=== PATIENT | female | born 2005 | race Caucasian/White ===

== ENCOUNTER 2024-11-08 14:07 | Inpatient (IN) | payer SELFPAY ==
--- OUTSIDE RECORDS SUMMARY | 2024-10-18 05:00 | XMS_ITS ---
Author Organization [facility] Address [address] [place] [id number] Care Team Providers Care Tile Professional Name Role Phone Jacob Mederos Primary Care Provider CHELSI Barclay Unavailable [phone] REASON FOR VISIT Kings[place] 19yo, ALL X-RAYS Social History Sex Assigned At : Social History Observation Description Sex Assigned At Female Encounters Encounter Location Date Provider Diagnosis [facility] [address] [place] [id number] 10/18/2024 CHELSI CARTER Plan Of Treatment No Information Progress Notes * Javier LIN ADOB:2005 (19 yo F)Acc No.[id number]:10/18/2024 UNLOCKED PROGRESS NOTE Oral health Patient: Carmen GRANADOS Javier Hoff Provider: Tomas CARTER :2005 A ge:19 Y S ex:Female Date:10/18/2024 [facility] [id number] Pcp:Jacob Mederos Structured Data:Homeless : N o Subjective: * Chief Complaints: * 1 . [place] 19yo, ALL X-RAYS. * Medical History: Objective: * Vitals: Assessment: Plan: * Treatment: * Billing Information: * Visit Code: * Procedure Codes: * Electronic signature of JEANNETTE CARTER DDS on 11/08/2024 at 02:11 PM CDT Sign off status: Pending * Provider: Tomas CARTER Date: 0 10/18/2024 Generated for Lauro brewster/Elvin/Iascitting on: 0 11/08/2024 02:11 PM CDT
--- OUTSIDE RECORDS SUMMARY | 2024-11-08 14:11 | XMS_ITS | Patient Health Record ---
Author Organization [facility] Address [address] [place] [id number] Care Team Providers Care [place] Applier Name Role Phone Gatito Jacob Primary Care Provider CHELSI Barclay Unavailable [phone] Allergies Allergen (clinical drug ingredient) Drug/Non Drug Allergy documented on EMR Reaction Allergy Type Onset Date Status contrast dye (uncoded) Unknown Allergy Active Reason For Referral No Information Medications Medication SIG (Take, Route, Frequency, Duration) Notes Start Date End Date Status Concerta Active Probiotic Active Penicillin V Potassium 250 MG 1 tablet Orally Twice a day Active Melatonin Active Social History Tobacco Use: Social History Observation Description Date Details (start date - stop date) Former Smoker NA - NA Sex Assigned At : Social History Observation Description Sex Assigned At Female Smoking Question Answer Notes Are you a: never smoker Tobacco Control (Standard) Question Answer Notes Tobacco use: Former smoker Problems Problem Type SNOMED Code ICD Code Onset Dates Problem Status W/U Status Risk Notes Problem Impacted third molar tooth (092183308) Impacted third molar tooth (K01.1) Active confirmed Vital Signs Heart Rate 83 /min 04/13/2024 Blood pressure diastolic 78 mm Hg 04/13/2024 Blood pressure systolic 114 mm Hg 04/13/2024 Encounters Encounter Location Date Provider Diagnosis [facility] [address] [place] [id number] 04/13/2024 CHELSI CARTER Plan Of Treatment No Information Insurance Providers Payer Name Payer Address Payer Phone Subscriber Number Group Number Insured Name Patient Relationship to Insured Coverage Start Date Coverage End Date Medicaid Home State Health Plan [address] [place] [phone] [id number] Javier Lin Self - patient is the insured [employer] [place] [place] [address] [phone] [id number] Javier Lin Self - patient is the insured Medical (General) History Medical History History ICD Code attention deficit hyperactivity disorder Chorea Surgical History Surgery Date(Month/Year) wisdom teeth removal 03/09
[2024-11-08 14:14] VITALS: BP 97/66; PULSE 87; RESP 17; TEMP 37.3; O2SAT 96
[2024-11-08 14:16] VITALS: BMI 21.0
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
[2024-11-08 19:57] VITALS: BP 98/65; PULSE 72; RESP 16; TEMP 36.9; O2SAT 98
[2024-11-08] MEDS: trazodone 50 mg Tablet PO (21:08)
[2024-11-08] MEDS: hyDROXYzine 25 mg Capsule 50 MG PO (21:08)
[2024-11-09 06:00] VITALS: BP 98/68; PULSE 66; RESP 16; O2SAT 97
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
[2024-11-09 14:00] VITALS: BP 94/48; PULSE 113; RESP 18; TEMP 36.8; O2SAT 93
[2024-11-09] MEDS: fluoxetine 10 mg Capsule 20 MG PO (16:42)
[2024-11-09] MEDS: nicotine 2 mg Gum BUCCAL (16:46)
[2024-11-09 18:14] VITALS: BP 93/63; PULSE 78; RESP 16; O2SAT 98
[2024-11-09] MEDS: hyDROXYzine 25 mg Capsule 50 MG PO (21:27)
[2024-11-09] MEDS: trazodone 50 mg Tablet PO (21:27)
[2024-11-09 22:00] VITALS: BP 104/61; PULSE 87; RESP 16; TEMP 36.4; O2SAT 98
[2024-11-10 06:00] VITALS: BP 80/56; PULSE 82; RESP 16; TEMP 36.8; O2SAT 100
[2024-11-10] MEDS: fluoxetine 20 mg Capsule PO (08:52)
[2024-11-10 14:00] VITALS: BP 98/58; PULSE 76; RESP 18; TEMP 36.6; O2SAT 98
[2024-11-10] MEDS: nicotine 2 mg Gum BUCCAL (16:13)
--- NOTE | 2024-11-10 17:13 | P.NPUPN_ITS ---
Subjective NPU Subjective: Patient presented today reporting that she is doing a little better with the medication. She reports some mild improvement and is optimistic that things can get better. She reports that she is having no side effects from the medication and is hopeful that this is a sign she will be able to leave sooner rather than later. Mental Status Exam MSE Comments: This is a well-nourished well-developed white female in hospital scrubs with limited grooming but adequate eye contact. No abnormal movements except for psychomotor retardation. Cooperative with exam and mild distress. Speech was decreased rate and volume. Mood described as feeling a little better, affect congruent. Thought process organized. Thought content: Patient endorsed suicidal but denied homicidal ideation, there were no delusions reported or noted, he denied any auditory or visual hallucinations. Reports suicidal thoughts and has had instances of self-injurious behavior, specifically cutting, discovered three nights ago. Denies any current thoughts to hurt or kill others. Denies experiencing visual hallucinations currently but reports past feelings of paranoia, particularly when homeless. Describes being a constant worrier with social anxiety, avoiding crowded places. Reports feelings of helplessness, hopelessness, and worthlessness, with depression symptoms worsening over the past 6-7 months. Reports difficulty sleeping and having nightmares, but not currently due to lack of sleep. Describes current mood as content. Recent stressors include homelessness and lack of follow-up care after hospitalizat ions. Attention and concentration were intact and memory appeared reliable but none were formally tested. She is alert and oriented x 3. Insight and judgment appear fair impulse control appears impaired. Vitals/I&O/Wt Last Vital Signs Temp 97.9 F 11/10/24 14:00 Pulse 76 11/10/24 14:00 Resp 18 11/10/24 14:00 BP 98/58 11/10/24 14:00 Pulse Ox 98 11/10/24 14:00 O2 Del Method Room Air 11/10/24 14:00 A&P Assessment and plan (1) Major depressive disorder: (2) PTSD (post-traumatic stress disorder): (3) Partner relational problem: Plan This is a 19-year-old white female with more recent psychiatric issues over the last 6 months. She endorses a history of anxiety going back to childhood but otherwise denied long-term historical issues. The patient is experiencing severe depression characterized by feelings of helplessness, hopelessness, and worthlessness, which have intensified over the past six months. There is a history of suicidal thoughts and self-injurious behavior, including a recent discovery of cutting. Anxiety has been a longstanding issue, exacerbated by recent events, leading to increased paranoia and social anxiety. The patient has also reported auditory hallucinations during periods of heightened stress. Substance use, including alcohol and various drugs, has been problematic, contributing to the deterioration of mental health. The patient has a history of ADHD diagnosed in childhood, which may be impacting current focus and mood stability.] 1. Startedt Prozac 20 mg p.o. daily 2. Encourage individual, group and milieu therapy. 3. Continue every 15 minute checks for safety. 4. Obtain collateral information. 5. Evaluate against the backdrop of the 96-hour hold PDMP PDMP Reviewed: Not Reviewed Involuntary Hold Information Hold Status: Legal Status: 96 Hour Hold Date/Time Hold Expires: voluntary Attestations NPU Medical Necessity Statement*: Inpatient hospitalization is medically necessary and the clinically appropriate intervention at this time.? We will monitor/initiate medications and make changes as indicated.? The patient?s likely length of stay 3-5 days. Coding Level of Care Code Acute Code for Chg Fwd Diagnoses Major depressive disorder F32.9 PTSD (post-traumatic stress disorder) F43.10 Partner relational problem Z63.0
[2024-11-10 20:17] VITALS: BP 115/71; PULSE 80; RESP 17; TEMP 36.8; O2SAT 95
[2024-11-10] MEDS: hyDROXYzine 25 mg Capsule 50 MG PO (21:16)
[2024-11-10] MEDS: trazodone 50 mg Tablet PO (21:16)
[2024-11-11 06:00] VITALS: BP 87/63; PULSE 67; RESP 16; TEMP 36.6; O2SAT 95
[2024-11-11] MEDS: fluoxetine 20 mg Capsule PO (08:14)
[2024-11-11 14:00] VITALS: BP 96/69; PULSE 85; RESP 18; TEMP 36.6; O2SAT 98
--- NOTE | 2024-11-11 17:01 | W.PM.NPUPNS ---
Subjective NPU Subjective: Patient presented today reporting that she is feeling better and optimistic about things moving forward. 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 She denied any side effects to the medication and we discussed the plan for discharge in the morning. Mental Status Exam MSE Comments: This is a well-nourished well-developed white female in hospital scrubs with improved grooming and appropriate eye contact. No abnormal movements. Cooperative with exam and mild distress. Speech was more normal rate and volume. Mood described as feeling better, affect congruent. Thought process organized. Thought content: Patient endorsed suicidal but denied homicidal ideation, there were no delusions reported or noted, he denied any auditory or visual hallucinations. Attention and concentration were intact and memory appeared reliable but none were formally tested. She is alert and oriented x 3. Insight and judgment appear fair impulse control appears improving. Vitals/I&O/Wt Last Vital Signs Temp 98 F 11/11/24 14:00 Pulse 85 11/11/24 14:00 Resp 18 11/11/24 14:00 BP 96/69 11/11/24 14:00 Pulse Ox 98 11/11/24 14:00 O2 Del Method Room Air 11/11/24 06:00 A&P Assessment and plan (1) Major depressive disorder: (2) PTSD (post-traumatic stress disorder): (3) Partner relational problem: Plan This is a 19-year-old white female with more recent psychiatric issues over the last 6 months. She endorses a history of anxiety going back to childhood but otherwise denied long-term historical issues. The patient is experiencing severe depression characterized by feelings of helplessness, hopelessness, and worthlessness, which have intensified over the past six months. There is a history of suicidal thoughts and self-injurious behavior, including a recent discovery of cutting. Anxiety has been a longstanding issue, exacerbated by recent events, leading to increased paranoia and social anxiety. The patient has also reported auditory hallucinations during periods of heightened stress. Substance use, including alcohol and various drugs, has been problematic, contributing to the deterioration of mental health. The patient has a history of ADHD diagnosed in childhood, which may be impacting current focus and mood stability.] 1. Started Prozac 20 mg p.o. daily 2. Encourage individual, group and milieu therapy. 3. Continue every 15 minute checks for safety. 4. Obtain collateral information. 5. Evaluate against the backdrop of the 96-hour hold PDMP PDMP Reviewed: Not Reviewed Involuntary Hold Information Hold Status: Legal Status: 96 Hour Hold Date/Time Hold Expires: voluntary Attestations NPU Medical Necessity Statement*: Inpatient hospitalization is medically necessary and the clinically appropriate intervention at this time.? We will monitor/initiate medications and make changes as indicated.? The patient?s likely length of stay 1-3 days. Coding Level of Care Code Acute Code for Chg Fwd Diagnoses Major depressive disorder F32.9 PTSD (post-traumatic stress disorder) F43.10 Partner relational problem Z63.0
[2024-11-11 20:02] VITALS: BP 137/75; PULSE 83; RESP 20; TEMP 36.6; O2SAT 92
[2024-11-12 06:00] VITALS: BP 100/60; PULSE 67; RESP 16; O2SAT 97
[2024-11-12] MEDS: nicotine 2 mg Gum BUCCAL (07:51)
[2024-11-12] MEDS: fluoxetine 20 mg Capsule PO (07:51)
--- NOTE | 2024-11-12 08:41 | W.PM.NPUDCS ---
Diagnoses at Discharge Discharge Diagnosis (1) Major depressive disorder: Status: Acute (2) PTSD (post-traumatic stress disorder): Status: Acute (3) Partner relational problem: Status: Acute Reason for Visit Reason for Visit: SI - bizarre behavior Involuntary Hold Information Hold Status: Legal Status: 96 Hour Hold Date/Time Hold Expires: voluntary Mental Status Exam MSE Comments: This is a well-nourished well-developed white female in hospital scrubs with improved grooming and appropriate eye contact. No abnormal movements. Cooperative with exam and mild distress. Speech was more normal rate and volume. Mood described as feeling better, affect congruent. Thought process organized. Thought content: Patient endorsed suicidal but denied homicidal ideation, there were no delusions reported or noted, he denied any auditory or visual hallucinations. Attention and concentration were intact and memory appeared reliable but none were formally tested. She is alert and oriented x 3. Insight and judgment appear fair impulse control appears improving. Discharge Data Vitals: Last Vital Signs Temp 97.8 F 11/11/24 20:02 Pulse 67 11/12/24 06:00 Resp 16 11/12/24 06:00 BP 100/60 11/12/24 06:00 Pulse Ox 97 11/12/24 06:00 O2 Del Method Room Air 11/11/24 06:00 Discharge Plan Discharge Patient Disposition: Home Condition: Stable Prescriptions: New fluoxetine 20 mg Capsule 20 mg PO DAILY 30 Days Qty: 30 1RF Discharge Orders: Discharge Order (Routine); Ordered 11/12/24 Ordered By: Prasanna Wayne Referrals: [facility] [Other] - 1-3 days Referral Note: Walk in services Friday thru Friday 8am to 4pm Discharge Diet: Regular Discharge Activity: Resume usual activity Patient Instructions: Fluoxetine (By mouth), Depression (DC), PTSD (Post Traumatic Stress Disorder) (DC), Anxiety (DC), Suicide Prevention (DC), Opioid Safety Discharge Attestations NPU Time Spent in Discharge Care*: less than 30 min Specific Discharge Activities: Specific discharge activities: educating patient, discussing with behavioral health case manager/social workers/dc planners, documenting/other paperwork and evaluating patient/reviewing data Coding Level of Care Code Acute Code for [facility] Fwd Diagnoses Major depressive disorder F32.9 PTSD (post-traumatic stress disorder) F43.10 Partner relational problem Z63.0
[2024-11-12 08:56] VITALS: BP 93/60; PULSE 81; RESP 16; TEMP 36.5; O2SAT 100
== END 2024-11-12 11:26 | disposition home or self-care (01) | DRG 881 ==
PROVIDERS: Admitting Provider Psychiatry & Neurology Psychiatry; Visit Provider Psychiatry & Neurology Psychiatry
DX: F32.9 Major depressive disorder, single episode, unspecified (principal); R45.851 Suicidal ideations; F43.10 Post-traumatic stress disorder, unspecified; F41.9 Anxiety disorder, unspecified; F90.9 Attention-deficit hyperactivity disorder, unspecified type; F19.91 Other psychoactive substance use, unspecified, in remission; F42.9 Obsessive-compulsive disorder, unspecified; Z63.0 Problems in relationship with spouse or partner; Z81.8 Family history of other mental and behavioral disorders
CPT/HCPCS: 97150; 97165; J9999